=== PATIENT | female | born 1995 | race Caucasian/White ===

== ENCOUNTER 2022-04-12 12:11 | Emergency (ER) | payer OTHER, SELFPAY ==
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
[2022-04-12 12:29] VITALS: BP 123/85; PULSE 73; RESP 18; TEMP 36.6; O2SAT 100; BMI 25.8
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
[2022-04-12 13:25] LABS: MANUAL DIFF FLAG NO
[2022-04-12 13:26] LABS: Basophils Percent Auto 0.2 % (0-2); Eosinophils Percent Auto 0.5 % (0-4); Hematocrit 42.3 % (37.0-47.0); Hemoglobin 14.3 g/dl (12.0-16.0); Imm Gran Abs Auto 0.01 X10*3/uL (0.00-0.03); Imm Gran Pct Auto 0.2 % (0.0-0.4); Lymphocytes Absolute Auto 1.4 X10*3/uL (1.2-4.9); Lymphocytes Percent Auto 24.6 % (20-40); Mean Corpuscular HGB Conc 33.8 g/dl (31.0-35.0); Mean Corpuscular Volume 88.9 fL (80.0-98.0); Monocytes Absolute Auto 0.4 X10*3/uL (0.1-1.2); Monocytes Percent Auto 6.4 % (2-11); Neutrophils Absolute Auto 3.9 x10*3/uL (2.0-8.3); Neutrophils Percent Auto 68.1 % (45-73); Platelet Count 179 X10*3/uL (160-400); Red Blood Count 4.76 X10*6/uL (4.20-5.50); Red Cell Distribution Width 12.1 % (11.0-16.0); White Blood Count 5.7 X10*3/uL (4.8-10.8)
[2022-04-12 13:53] LABS: Alanine Aminotransferase 20 U/L (0-31); Albumin Level 4.2 g/dL (3.5-5.0); Alkaline Phosphatase 62 U/L (39-117); Anion Gap 15 (12-20); Aspartate Amino Transferase 28 U/L (5-31); Bilirubin Direct < 0.2 mg/dL (0.0-0.5); Bilirubin Total 0.6 mg/dL (0.0-1.0); Blood Urea Nitrogen 10 mg/dL (9-16); Calcium 9.2 mg/dL (8.4-10.2); Carbon Dioxide 21 mmol/L (22-29); Chloride 106 mmol/L (96-108); Creatinine Clr Calc Pharmacy 109.7; Estimated Glomerular Filt Rate > 60; Glucose Random 82 mg/dL (60-115); HCG Quantitative < 2 mIU/mL; Sodium 138 mmol/L (135-145)
--- OUTSIDE RECORDS SUMMARY | 2022-04-12 15:00 | XMS_ITS ---
:1995 Author Organization [facility] Address [address] [place] [address] Care Team Providers Name Role Phone Brendan Joya Unavailable Unavailable PROBLEMS Type Condition ICD9-CM Code EDI73-VP Code Onset Condition SNO MED Code Dates Status Problem Other asthma J45.998 Active 5197935 01 Problem Acute upper J06.9 Active 02388089 respiratory infection, unspecified Problem Otalgia, right H92.01 Active 32594 004 ear Problem Cough R05 Active 92109583 ALLERGIES Substance Reaction Event Type Date Status Sulfamethoxazole Unknown Drug Allergy Nov, Active ENCOUNTERS Encounter Location Date Diagnosis Urgent Care Center [address] [place] [id number] Mar, [place] [address] syndrome [T ietze] M94.0 [facility] [address] Nov, [place] [facility] [place] infection, unspe cified [id number] J06.9 [facility] [address] Apr, [facility] [place] [address] [facility] [address] Apr, [facility]05 and Other asthma [place] J45.998 [address] [facility] [address] Apr, Sh ortness of breath R06.02 [place] [address] [facility] - [address] [place] Sep, Ri ght lower quadrant pain [facility], [place] R10.31 ; Dysuria R30.0 and [id number] Other muscle spa sm M62.838 [facility] [address] [place] Jul, Ot algia, right ear H92.01 [place] [address] IMMUNIZATIONS No Known Immunizations SOCIAL HISTORY Never Assessed REASON FOR REFERRAL FUNCTIONAL STATUS PLAN OF CARE VITAL SIGNS Temperature 98.6 degrees Fahrenheit 2021-04-08 Temperature 98.9 degrees Fahrenheit 2018-12-18 Temperature 97.8 degrees Fahrenheit 2016-05-18 Temperature 98.2 degrees Fahrenheit 2016-05-11 Temperature 98.1 degrees Fahrenheit 2016-05-03 Temperature 97.6 degrees Fahrenheit 2015-10-02 Temperature 98.2 degrees Fahrenheit 2015-08-14 Heart Rate 78 /min 2021-04-08 Heart Rate 100 /min 2018-12-18 Heart Rate 76 /min 2016-05-18 Heart Rate 73 /min 2016-05-11 Heart Rate 82 /min 2016-05-03 Heart Rate 65 /min 2015-10-02 Heart Rate 90 /min 2015-08-14 Height 67.5 in 2021-04-08 Height 67.5 in 2018-12-18 Height 67 in 2016-05-18 Height 67.5 in 2016-05-11 Height 66.5 in 2015-08-14 Weight 204 lbs 2021-04-08 Weight 199.0 lbs 2018-12-18 Weight 163.8 lbs 2016-05-18 Weight 166.2 lbs 2016-05-11 Weight 158.8 lbs 2015-08-14 BMI 31.48 kg/m2 2021-04-08 BMI 30.70 kg/m2 2018-12-18 BMI 25.65 kg/m2 2016-05-18 BMI 25.64 kg/m2 2016-05-11 BMI 25.24 kg/m2 2015-08-14 Respiratory Rate 12 /min 2018-12-18 Respiratory Rate 16 /min 2016-05-18 Respiratory Rate 16 /min 2016-05-11 Respiratory Rate 12 /min 2016-05-03 Respiratory Rate 12 /min 2015-10-02 Respiratory Rate 18 /min 2015-08-14 Oximetry 99 % 2021-04-08 Oximetry 99 % 2018-12-18 Oximetry 99 % 2016-05-18 Oximetry 98 % 2016-05-11 Oximetry 99 % 2016-05-03 Oximetry 98 % 2015-10-02 Oximetry 98 % 2015-08-14 Blood pressure systolic 110 mm Hg 2021-04-08 Blood pressure diastolic 70 mm Hg 2021-04-08 MEDICATIONS Medication Instructions Dosage Frequency Start End Duration Statu s Date Date Qvar 40 Inhalation Twice 1 puff 12h 20 Apr, Not-Qasim in MCG/ACT a day 2016 g Medrol (Mg) 4 PO daily as directed 24h Apr, 6 days Not- Takin mg 2016 g Cymbalta Active control Not-Takin g Zofran 4 MG Orally Twice a 2 tablets 12h 24 Nov, 5 days Act shikha day 2018 Tessalon Orally Three 1 capsule as 8h Apr, 7 days Not-T wilmer Perles 100 MG times a day needed 2016 g Xyzal 5 MG Orally Once a 1 tablet in 24h Apr, 14 days Not -Takin day the evening 2016 g PROCEDURES Procedure Date Ordered Result Body Site Nebulizer Treatment May 03, 2016 Albuterol sulfate .083%/ml May 03, 2016 [facility] Dec 18, 2018 RESULTS No Results REASON FOR VISIT asthma, F/U SICK, SICK, F/U , F/U , F/U ON ASTHMA, ASTHMA, UTI F/U, KIDNEY INFECTION/UTI, Ear Pain Insurance Providers [employer] Member Patient Patient Patient Patient Patient Subscriber Subscriber Subscriber Group Insurance Plan Plan Plan Plan ID Relationship Address Phone Name Date of ID Name Date of No Type Insurance Insurance Insurance Coverage to Subscriber Address Phone Name Dates [employer] [phone] [employer] self ANNA [id number] [place] [address]
[2022-04-13 08:42] LABS: HBS Num1 200.98 mIU/mL (0-7.99); HBc Num1 0.09 S/CO (0.00-0.79); HBsAGNum1 0.32 S/CO (0.00-0.99); HIV Num 1 1.85 S/CO (0.00-0.99); Hepatitis B Core Antibody Nonreactive (Nonreactive); Hepatitis B Surface Antigen Negative (Negative); ~HepC Num1 0.07 S/CO (0.00-0.79); ~Hepatitis B Surface Antibody REACTIVE (Nonreactive); ~Hepatitis C Antibody Nonreactive (Nonreactive)
[2022-04-13 10:18] LABS: HIV AB/AG Nonreactive (Nonreactive); HIV Num 2 0.06 S/CO; HIV Num 3 0.06 S/CO
== END 2022-04-12 15:14 | disposition home or self-care (01) ==
PROVIDERS: Physician Assistant Medical; Emergency Provider Emergency Medicine
DX: S06.0X9A Concussion with loss of consciousness of unspecified duration, initial encounter (principal); S00.01XA Abrasion of scalp, initial encounter; R51.9 Headache, unspecified; M54.2 Cervicalgia; Y04.2XXA Assault by strike against or bumped into by another person, initial encounter; Y93.9 Activity, unspecified; Y92.9 Unspecified place or not applicable; Y99.0 Civilian activity done for income or pay; Z79.899 Other long term (current) drug therapy
CPT/HCPCS: 36415; 70450; 72125; 80048; 80076; 84702; 85025; 86704; 86706; 86803; 87340; 87389; 99282; 99284

== ENCOUNTER → 2022-04-17 12:50 | Outpatient (BNVA) | payer OTHER, SELFPAY | PROVIDERS: Visit Provider Physician Assistant Medical | DX: S06.9X0A Unspecified intracranial injury without loss of consciousness, initial encounter (principal); S16.1XXA Strain of muscle, fascia and tendon at neck level, initial encounter; Y04.8XXA Assault by other bodily force, initial encounter | CPT/HCPCS: 99203 ==

== ENCOUNTER → 2022-04-24 12:57 | Outpatient (BNVA) | payer OTHER, SELFPAY | PROVIDERS: Visit Provider Physician Assistant Medical | DX: S06.9X0A Unspecified intracranial injury without loss of consciousness, initial encounter (principal); S16.1XXA Strain of muscle, fascia and tendon at neck level, initial encounter; Y04.8XXA Assault by other bodily force, initial encounter | CPT/HCPCS: 99213 ==

== ENCOUNTER → 2022-05-24 13:40 | Outpatient (BNVA) | payer OTHER, SELFPAY | PROVIDERS: Visit Provider Physician Assistant Medical | DX: S06.0X0D Concussion without loss of consciousness, subsequent encounter (principal); S16.1XXD Strain of muscle, fascia and tendon at neck level, subsequent encounter; S39.012D Strain of muscle, fascia and tendon of lower back, subsequent encounter; Y04.2XXD Assault by strike against or bumped into by another person, subsequent encounter; R42 Dizziness and giddiness; R51.9 Headache, unspecified | CPT/HCPCS: 99213 ==

== ENCOUNTER → 2022-05-31 09:24 | Outpatient (BNVA) | payer OTHER, SELFPAY | PROVIDERS: Visit Provider Physician Assistant Medical | DX: S06.2X0D Diffuse traumatic brain injury without loss of consciousness, subsequent encounter (principal); S16.1XXD Strain of muscle, fascia and tendon at neck level, subsequent encounter; S39.012D Strain of muscle, fascia and tendon of lower back, subsequent encounter; Y04.2XXD Assault by strike against or bumped into by another person, subsequent encounter; R51.9 Headache, unspecified; R42 Dizziness and giddiness | CPT/HCPCS: 99213 ==

== ENCOUNTER → 2022-06-14 08:40 | Outpatient (BNVA) | payer OTHER, SELFPAY | PROVIDERS: Visit Provider Physician Assistant Medical | DX: S06.9X0D Unspecified intracranial injury without loss of consciousness, subsequent encounter (principal); S16.1XXD Strain of muscle, fascia and tendon at neck level, subsequent encounter; S39.012D Strain of muscle, fascia and tendon of lower back, subsequent encounter; Y04.8XXD Assault by other bodily force, subsequent encounter; R51.9 Headache, unspecified; R42 Dizziness and giddiness | CPT/HCPCS: 99213 ==

== ENCOUNTER → 2022-06-15 11:12 | Outpatient (BNVA) | payer OTHER, SELFPAY | PROVIDERS: Visit Provider Physician Assistant Medical | DX: R51.9 Headache, unspecified (principal); R42 Dizziness and giddiness | CPT/HCPCS: 99213 ==

== ENCOUNTER → 2022-06-25 09:19 | Outpatient (BNVA) | payer OTHER, SELFPAY | PROVIDERS: Visit Provider Physician Assistant Medical | DX: S06.9X0D Unspecified intracranial injury without loss of consciousness, subsequent encounter (principal); S16.1XXD Strain of muscle, fascia and tendon at neck level, subsequent encounter; S39.012D Strain of muscle, fascia and tendon of lower back, subsequent encounter; Y04.8XXD Assault by other bodily force, subsequent encounter; R51.9 Headache, unspecified | CPT/HCPCS: 99213 ==

== ENCOUNTER → 2022-06-28 08:35 | Outpatient (BNVA) | payer OTHER, SELFPAY | PROVIDERS: Visit Provider Physician Assistant Medical | DX: S06.9X0D Unspecified intracranial injury without loss of consciousness, subsequent encounter (principal); S16.1XXD Strain of muscle, fascia and tendon at neck level, subsequent encounter; S39.012D Strain of muscle, fascia and tendon of lower back, subsequent encounter; Y04.8XXD Assault by other bodily force, subsequent encounter; R51.9 Headache, unspecified; R42 Dizziness and giddiness | CPT/HCPCS: 99213 ==

== ENCOUNTER → 2022-07-04 15:12 | Outpatient (BNVA) | payer OTHER, SELFPAY | PROVIDERS: Visit Provider Physician Assistant Medical | DX: S06.9X0D Unspecified intracranial injury without loss of consciousness, subsequent encounter (principal); S16.1XXD Strain of muscle, fascia and tendon at neck level, subsequent encounter; Y04.8XXD Assault by other bodily force, subsequent encounter; R51.9 Headache, unspecified; R42 Dizziness and giddiness | CPT/HCPCS: 99213 ==

== ENCOUNTER → 2022-07-12 14:29 | Outpatient (BNVA) | payer OTHER, SELFPAY | PROVIDERS: Visit Provider Physician Assistant Medical | DX: S06.9X0D Unspecified intracranial injury without loss of consciousness, subsequent encounter (principal); S16.1XXD Strain of muscle, fascia and tendon at neck level, subsequent encounter; S39.012D Strain of muscle, fascia and tendon of lower back, subsequent encounter; Y04.8XXD Assault by other bodily force, subsequent encounter; R51.9 Headache, unspecified; R42 Dizziness and giddiness | CPT/HCPCS: 99213 ==

== ENCOUNTER → 2022-07-26 14:54 | Outpatient (BNVA) | payer OTHER, SELFPAY | PROVIDERS: Visit Provider Physician Assistant Medical | DX: S06.9X0D Unspecified intracranial injury without loss of consciousness, subsequent encounter (principal); S16.1XXD Strain of muscle, fascia and tendon at neck level, subsequent encounter; S39.012D Strain of muscle, fascia and tendon of lower back, subsequent encounter; Y04.8XXD Assault by other bodily force, subsequent encounter; R51.9 Headache, unspecified; R42 Dizziness and giddiness | CPT/HCPCS: 99213 ==

== ENCOUNTER 2022-08-09 07:11 | Emergency (ER) | payer OTHER, SELFPAY ==
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
[2022-08-09 07:22] VITALS: BP 132/75; PULSE 78; O2SAT 100
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
[2022-08-09] MEDS: Acetaminophen 325 MG TABLET 975 MG PO (07:47)
[2022-08-09] MEDS: Ibuprofen 800 MG TABLET PO (07:48)
[2022-08-09] MEDS: Cyclobenzaprine HCl 10 MG TABLET PO (07:48)
[2022-08-09 07:50] VITALS: BP 125/75; PULSE 71; RESP 18; TEMP 36.6; O2SAT 99; BMI 25.1
[2022-08-09 07:56] VITALS: BP 125/75; PULSE 65; RESP 16; TEMP 36.8; O2SAT 98
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
[2022-08-09 10:31] VITALS: BP 108/67; PULSE 56; RESP 16; TEMP 36.6; O2SAT 99
== END 2022-08-09 10:46 | disposition home or self-care (01) ==
PROVIDERS: Emergency Provider Emergency Medicine
DX: S39.012A Strain of muscle, fascia and tendon of lower back, initial encounter (principal); S13.4XXA Sprain of ligaments of cervical spine, initial encounter; R51.9 Headache, unspecified; M54.2 Cervicalgia; V43.52XA Car driver injured in collision with other type car in traffic accident, initial encounter; Y93.9 Activity, unspecified; Y92.410 Unspecified street and highway as the place of occurrence of the external cause; Y99.9 Unspecified external cause status
CPT/HCPCS: 72040; 72100; 99283

== ENCOUNTER → 2022-08-16 15:07 | Outpatient (BNVA) | payer OTHER, SELFPAY | PROVIDERS: Visit Provider Physician Assistant Medical | DX: S06.9X0D Unspecified intracranial injury without loss of consciousness, subsequent encounter (principal); S16.1XXD Strain of muscle, fascia and tendon at neck level, subsequent encounter; S39.012D Strain of muscle, fascia and tendon of lower back, subsequent encounter; Y04.8XXD Assault by other bodily force, subsequent encounter; R51.9 Headache, unspecified; R42 Dizziness and giddiness | CPT/HCPCS: 99213 ==

== ENCOUNTER → 2022-09-14 10:11 | Outpatient (BNVA) | payer OTHER, SELFPAY | PROVIDERS: Visit Provider Physician Assistant Medical | DX: S06.9X0D Unspecified intracranial injury without loss of consciousness, subsequent encounter (principal); S16.1XXD Strain of muscle, fascia and tendon at neck level, subsequent encounter; S39.012D Strain of muscle, fascia and tendon of lower back, subsequent encounter; Y04.8XXD Assault by other bodily force, subsequent encounter; R51.9 Headache, unspecified; R55 Syncope and collapse | CPT/HCPCS: 99213 ==

== ENCOUNTER 2022-10-15 10:00 | Outpatient (RCR) | payer OTHER, SELFPAY ==
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
--- NOTE | 2023-01-15 12:47 | MHC.PT.DC ---
[facility] [place] Office [place] Office [place] Office [address] Betsey Lebron [address] [phone] F: [phone] F: [phone] F: [phone] F: [phone] Physical Therapy Discharge Report Diagnosis: TBI headache/cervical strain, lumbar strain (MD Dx) cervicogenic headaches post concussive (PT Dx) Date of Surgery: Date of Evaluation: 07/04/22 Date of Discharge: 01/15/23 Treatments to Date: 11 Cancellations to Date: No Shows to Date: Discharge Status: Improved Function Independent with HEP Discharge Summary: Carolyn received PT treament for neck and LBP as well as treatment for dizziness and vestibular dysfunction after concussion. Her last seessment in her PT note 10/15/22, She has progressed well and reports overall decreased dizziness. She has been able to progress VOR activities but conts to have difficulty with memory and reading and recommend OT consult. spoke with Lorri ORTIZ who is in agreement and will give script. Patient is discharged from PT at this time. Electronically signed by: Jo-Ann Ronquillo, PT, DPT Please sign and return to therapist. Thank you for your referral.
== END 2023-01-15 12:48 | disposition home or self-care (01) ==
LOC: HO.PT 10:00
PROVIDERS: Visit Provider Physician Assistant Medical
DX: S06.9XAD Unspecified intracranial injury with loss of consciousness status unknown, subsequent encounter (principal); R51.9 Headache, unspecified; S16.1XXD Strain of muscle, fascia and tendon at neck level, subsequent encounter; S39.012D Strain of muscle, fascia and tendon of lower back, subsequent encounter
CPT/HCPCS: 97110; 97112; 97140; 97161; 97530

== ENCOUNTER → 2022-10-15 10:51 | Outpatient (BNVA) | payer OTHER, SELFPAY | PROVIDERS: Visit Provider Physician Assistant Medical | DX: S06.9X0D Unspecified intracranial injury without loss of consciousness, subsequent encounter (principal); S16.1XXD Strain of muscle, fascia and tendon at neck level, subsequent encounter; Y04.8XXD Assault by other bodily force, subsequent encounter; R42 Dizziness and giddiness | CPT/HCPCS: 99213 ==

== ENCOUNTER 2022-10-22 13:26 | Outpatient (AMB) | payer OTHER, SELFPAY ==
[2022-10-22 13:35] VITALS: BP 118/72; PULSE 80; O2SAT 98; BMI 26.3
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
== END 2022-10-22 14:56 | disposition home or self-care (01) ==
PROVIDERS: Visit Provider Nurse Practitioner Family
DX: F43.10 Post-traumatic stress disorder, unspecified (principal); S06.9X1S Unspecified intracranial injury with loss of consciousness of 30 minutes or less, sequela; R29.6 Repeated falls; F07.81 Postconcussional syndrome; G44.309 Post-traumatic headache, unspecified, not intractable
CPT/HCPCS: 99204

== ENCOUNTER → 2022-10-22 13:26 | Outpatient (BNVA) | payer OTHER, SELFPAY | PROVIDERS: Visit Provider Nurse Practitioner Family | DX: S06.9XAA Unspecified intracranial injury with loss of consciousness status unknown, initial encounter (principal); Y04.2XXA Assault by strike against or bumped into by another person, initial encounter; Y93.F9 Activity, other caregiving; Y92.538 Other ambulatory health services establishments as the place of occurrence of the external cause; Y99.0 Civilian activity done for income or pay; F07.81 Postconcussional syndrome; F43.10 Post-traumatic stress disorder, unspecified; G44.309 Post-traumatic headache, unspecified, not intractable; R42 Dizziness and giddiness | CPT/HCPCS: 99202 ==

== ENCOUNTER 2022-11-06 10:03 | Outpatient (REF) | payer OTHER, SELFPAY ==
--- NOTE | ~2022-11-06 | MR_ITS ---
EXAMINATION: MR BRAIN WITHOUT CONTRAST CLINICAL INFORMATION: History of traumatic brain injury. Dizziness and persistent headaches. COMPARISON: Head CT dated 04/12/2022. TECHNIQUE: Multiplanar, multisequence imaging of the brain was performed without contrast. FINDINGS: No diffusion abnormalities are identified to suggest an acute or subacute infarct. The ventricles are normal in size. No mass effect or midline shift is seen. No brain parenchymal signal abnormality is noted. No extra-axial fluid collections are seen. The brainstem and cerebellum are normal. The gradient refocused acquisition demonstrates no pathologic magnetic susceptibility artifact to indicate underlying acute or chronic blood products. The craniovertebral junction, marrow signal, and midline structures are normal. The major intracranial flow voids at the level of the pa[place] of [place] are preserved. The dural venous sinus flow voids are maintained. The mastoid air cells and paranasal sinuses are well aerated. MR/MR head/brain wo con IMPRESSION: Normal MRI of the brain. No acute process.
== END 2022-11-06 10:04 | disposition home or self-care (01) ==
LOC: HO.MRI 10:03
PROVIDERS: Visit Provider Internal Medicine
DX: S06.9XAD Unspecified intracranial injury with loss of consciousness status unknown, subsequent encounter (principal); R51.9 Headache, unspecified; R42 Dizziness and giddiness
CPT/HCPCS: 70551

== ENCOUNTER 2022-12-06 09:30 | Outpatient (RCR) | payer OTHER, SELFPAY ==
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
--- NOTE | 2022-12-06 10:16 | MHC.OT.DC ---
[address] [phone] F: [phone] Occupational Therapy Discharge Note Patient Name: Carolyn Viveros Provider: Lorri Champion Diagnosis: Traumatic brain injury Headaches Dizziness Date of Evaluation: 10/24/22 Date of Discharge: 12/06/22 Treatments to Date: 9 Discharge Status: Improved Function Independent with HEP Discharge Summary: Carolyn reports sustaining a fall last as she was descending the stairs following her physical therapy appointment. She reports when she got to the bottom of the stairs, she felt dizzy and passed out. She woke up and realized she hit her head. No medical intervention was obtained although she did notify the PT office. Pt denies new or worsening concussion symptoms since that fall except for pain in her right shoulder and the back of her head. We had a planned discharge this visit. She is still in agreement with plan. At this time, Carolyn has met 4/5 LTG's set on admission and is IND with home cognitive based programs to continue working on improving memory/attention and processing speed. She is still awaiting trauma based or talk therapy, which is recommended for PTSD symptoms. Pts primary concerns remain if she will always struggle with word finding, decreased attention and emotional outbursts. We discussed this at length and reviewed the healing progress. Recommended 'Concussion Rescue' book for continued education and healing tips, although I did provide her with typed resources as well. Pt is discharged from skilled OT and has been instructed to call with any questions / concerns. Electronically Signed By: Brittany Johnson MS OTR/L Reviewed/agree with student documentation: Therapist: Please Sign and return to therapist, thank you for your referral.
== END 2022-12-06 10:37 | disposition home or self-care (01) ==
LOC: HO.OT 09:30
PROVIDERS: PCP Nurse Practitioner Family; Visit Provider Physician Assistant Medical
DX: S06.9XAD Unspecified intracranial injury with loss of consciousness status unknown, subsequent encounter (principal); R51.9 Headache, unspecified; R42 Dizziness and giddiness
CPT/HCPCS: 97110; 97165; 97530

== ENCOUNTER 2022-12-11 10:57 | Outpatient (AMB) | payer OTHER, SELFPAY ==
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
--- OUTSIDE RECORDS SUMMARY | 2022-12-11 11:06 | XMS_ITS | Patient Health Record ---
Author Name Unknown Organization [facility], Address [address] [place] [address] Care Team Providers Care Assembler Fluorescent Lights Name Role Phone Eddie Skinner Unavailable [phone] Brendan Joya Unavailable [phone] ALLERGIES Allergen (clinical drug ingredient) Drug/Non Drug Allergy documented on EMR Reaction Allergy Type Onset Date Status Sulfamethoxazole Unknown Drug Allergy Active REASON FOR REFERRAL No Information MEDICATIONS Medication SIG (Take, Route, Frequency, Duration) Notes Start Date End Date Status Cymbalta *please review f or potential update for e-prescription and drug interaction check* Active Tessalon Perles 100 MG 1 capsule as needed Orally Three times a day for 7 days 05/18/2016 Not-Taking Qvar 40 MCG/ACT 1 puff Inhalation Twice a day *please review for potential update for e-prescription and drug interaction check* 05/14/2016 Not-Taking Medrol (Mg) 4 mg as directed PO daily for 6 days *please review for potential update for e-prescription and drug interaction check* 05/03/2016 Not-Taking Xyzal 5 MG 1 tablet in the evening Orally Once a day for 14 days *please review for potential update for e-prescription and drug interaction check* 05/03/2016 Not-Taking control *please review f or potential update for e-prescription and drug interaction check* Not-Taking Zofran 4 MG 2 tablets Orally Twice a day for 5 days 12/18/2018 Active SOCIAL HISTORY Sex Assigned At : Social History Observation Description Sex Assigned At Unknown PROBLEMS Problem Type ICD Code Onset Dates Problem Status W/U Status Risk SNOMED Code Notes Problem Otalgia, right ear (H92.01) Active confirmed Otalgia (40732734) Problem Acute upper respiratory infection, unspecified (J06.9) Active confirmed Acute upper respiratory infection (79349373) Problem Other asthma (J45.998) Active confirmed Asthma (969130193) Problem Cough (R05) Active confirmed Cough (69634259) PLAN OF TREATMENT No Information Insurance Providers Payer Name Payer Address Payer Phone Subscriber Number Group Number Insured Name Patient Relationship to Insured Coverage Start Date Coverage End Date [address] [place] [address] [phone] [id number] ANNA FABIAN Self - patient is the insured MEDICAL (GENERAL) HISTORY Medical History History ICD Code ASTHMA DEPRESSION
== END 2022-12-11 13:10 | disposition home or self-care (01) ==
LOC: HO.HSMS 10:57
PROVIDERS: PCP Nurse Practitioner Family; Visit Provider Nurse Practitioner Family
DX: F43.10 Post-traumatic stress disorder, unspecified (principal); S06.9XAS Unspecified intracranial injury with loss of consciousness status unknown, sequela; F07.81 Postconcussional syndrome; G44.309 Post-traumatic headache, unspecified, not intractable; R29.6 Repeated falls
CPT/HCPCS: 99214

== ENCOUNTER → 2022-12-11 10:57 | Outpatient (BNVA) | payer OTHER, SELFPAY | PROVIDERS: PCP Nurse Practitioner Family; Visit Provider Nurse Practitioner Family ==

== ENCOUNTER 2023-02-14 13:00 | Outpatient (AMB) | payer OTHER, SELFPAY ==
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
--- OUTSIDE RECORDS SUMMARY | 2023-02-14 13:02 | XMS_ITS | Patient Health Record ---
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 Name Role Phone Eddie Skinner Unavailable [phone] Brendan Joya Unavailable [phone] ALLERGIES Allergen (clinical drug ingredient) Drug/Non Drug [...] Otalgia, right ear (H92.01) Active confirmed Otalgia (64480563) Problem Acute upper respiratory infection, unspecified (J06.9) Active confirmed Acute upper respiratory infection (54886337) Problem Other asthma (J45.998) Active confirmed Asthma (273969811) Problem Cough (R05) Active confirmed Cough (28125204) PLAN OF TREATMENT No Information Insurance Providers Payer Name Payer Address Payer Phone Subscriber Number Group Number Insured Name Patient Relationship to Insured Coverage Start Date Coverage End Date [address] [place] [address] [phone] [id number] ANNA FABIAN Self - patient is the insured MEDICAL (GENERAL) HISTORY Medical History History ICD Code ASTHMA DEPRESSION
== END 2023-02-15 10:11 | disposition home or self-care (01) ==
LOC: HO.HSMS 13:00
PROVIDERS: PCP Nurse Practitioner Family; Visit Provider Nurse Practitioner Family
DX: S06.300S Unspecified focal traumatic brain injury without loss of consciousness, sequela (principal); F07.81 Postconcussional syndrome; G44.309 Post-traumatic headache, unspecified, not intractable; R55 Syncope and collapse; Z04.2 Encounter for examination and observation following work accident
CPT/HCPCS: 99214

== ENCOUNTER → 2023-02-14 13:00 | Outpatient (BNVA) | payer OTHER, SELFPAY | PROVIDERS: PCP Nurse Practitioner Family; Visit Provider Nurse Practitioner Family ==

== ENCOUNTER 2023-03-27 10:55 | Outpatient (AMB) | payer OTHER, SELFPAY ==
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
[2023-03-27 11:04] VITALS: BP 115/72; PULSE 67; O2SAT 99; BMI 24.4
== END 2023-03-27 12:10 | disposition home or self-care (01) ==
PROVIDERS: PCP Nurse Practitioner Family; Visit Provider Nurse Practitioner Family
DX: F43.10 Post-traumatic stress disorder, unspecified (principal); F07.81 Postconcussional syndrome; G44.309 Post-traumatic headache, unspecified, not intractable; R42 Dizziness and giddiness; R29.6 Repeated falls; R55 Syncope and collapse
CPT/HCPCS: 99214

== ENCOUNTER → 2023-03-27 10:55 | Outpatient (BNVA) | payer OTHER, SELFPAY | PROVIDERS: PCP Nurse Practitioner Family; Visit Provider Nurse Practitioner Family | DX: F07.81 Postconcussional syndrome (principal); S06.9XAA Unspecified intracranial injury with loss of consciousness status unknown, initial encounter; F43.10 Post-traumatic stress disorder, unspecified; G44.309 Post-traumatic headache, unspecified, not intractable; R42 Dizziness and giddiness; R55 Syncope and collapse; Z91.81 History of falling; Z79.899 Other long term (current) drug therapy | CPT/HCPCS: 99212 ==

== ENCOUNTER 2023-06-28 10:52 | Outpatient (AMB) | payer SELFPAY ==
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
--- OUTSIDE RECORDS SUMMARY | 2023-06-28 10:54 | XMS_ITS | Patient Health Record ---
Author Organization [facility], Address [address] [place] [address] Care Team Providers Care Currency Counter Name Role Phone Eddie Skinner Unavailable [phone] Brendan Joya Unavailable [phone] Allergies Allergen (clinical drug ingredient) Drug/Non Drug Allergy documented on EMR Reaction Allergy Type Onset Date Status Sulfamethoxazole Unknown Drug Allergy Active Reason For Referral No Information Medications Medication SIG (Take, Route, Frequency, Duration) Notes [...] a day for 5 days 12/18/2018 Active Problems Problem Type SNOMED Code ICD Code Onset Dates Problem Status W/U Status Risk Notes Problem Otalgia (63760031) Otalgia, right ear (H92.01) Active confirmed Problem Acute upper respiratory infection (67211577) Acute upper respiratory infection, unspecified (J06.9) Active confirmed Problem Asthma (947503998) Other asthma (J45.998) Active confirmed Problem Cough (80186665) Cough (R05) Active confirmed Plan Of Treatment No Information Insurance Providers Payer Name Payer Address Payer Phone Subscriber Number Group Number Insured Name Patient Relationship to Insured Coverage Start Date Coverage End Date [place] [address] [place] [address] [id number] ANNA FABIAN Self - patient is the insured Medical (General) History Medical History History ICD Code ASTHMA DEPRESSION
== END 2023-06-28 11:30 | disposition home or self-care (01) ==
LOC: HO.HSMS 10:52
PROVIDERS: PCP Nurse Practitioner Family; Visit Provider Nurse Practitioner Family
DX: F43.10 Post-traumatic stress disorder, unspecified (principal); F07.81 Postconcussional syndrome; G44.309 Post-traumatic headache, unspecified, not intractable; R55 Syncope and collapse
CPT/HCPCS: 99214

== ENCOUNTER → 2023-06-28 10:52 | Outpatient (BNVA) | payer OTHER, SELFPAY | PROVIDERS: PCP Nurse Practitioner Family; Visit Provider Nurse Practitioner Family | DX: F07.81 Postconcussional syndrome (principal); F43.10 Post-traumatic stress disorder, unspecified; G44.309 Post-traumatic headache, unspecified, not intractable; R42 Dizziness and giddiness; R55 Syncope and collapse; Z87.820 Personal history of traumatic brain injury; Z91.81 History of falling; Z79.899 Other long term (current) drug therapy | CPT/HCPCS: 99212 ==

== ENCOUNTER 2023-10-02 10:09 | Outpatient (AMB) | payer SELFPAY ==
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
[2023-10-02 10:11] VITALS: BP 130/82; PULSE 90; O2SAT 98; BMI 24.8
== END 2023-10-02 11:13 | disposition home or self-care (01) ==
PROVIDERS: PCP Nurse Practitioner Family; Visit Provider Nurse Practitioner Family
DX: F43.10 Post-traumatic stress disorder, unspecified (principal); S06.9XAA Unspecified intracranial injury with loss of consciousness status unknown, initial encounter; F07.81 Postconcussional syndrome; G44.309 Post-traumatic headache, unspecified, not intractable; R42 Dizziness and giddiness
CPT/HCPCS: 99214

== ENCOUNTER → 2023-10-02 10:09 | Outpatient (BNVA) | payer SELFPAY | PROVIDERS: PCP Nurse Practitioner Family; Visit Provider Nurse Practitioner Family | DX: F43.10 Post-traumatic stress disorder, unspecified (principal); S06.9XAD Unspecified intracranial injury with loss of consciousness status unknown, subsequent encounter; F07.81 Postconcussional syndrome; G44.309 Post-traumatic headache, unspecified, not intractable; R42 Dizziness and giddiness; Z79.899 Other long term (current) drug therapy | CPT/HCPCS: 99212 ==

== ENCOUNTER 2024-01-20 14:09 | Outpatient (AMB) | payer OTHER, SELFPAY ==
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
[2024-01-20 14:25] VITALS: BP 118/72; PULSE 94; O2SAT 98; BMI 24.4
== END 2024-01-20 15:47 | disposition home or self-care (01) ==
PROVIDERS: PCP Nurse Practitioner Family; Visit Provider Nurse Practitioner Family
DX: F43.10 Post-traumatic stress disorder, unspecified (principal); F07.81 Postconcussional syndrome; G44.309 Post-traumatic headache, unspecified, not intractable; R42 Dizziness and giddiness; G43.009 Migraine without aura, not intractable, without status migrainosus
CPT/HCPCS: 99214

== ENCOUNTER → 2024-01-20 14:09 | Outpatient (BNVA) | payer OTHER, SELFPAY | PROVIDERS: PCP Nurse Practitioner Family; Visit Provider Nurse Practitioner Family ==

== ENCOUNTER 2024-10-30 11:19 | Outpatient (AMB) | payer OTHER, SELFPAY ==
--- OUTSIDE RECORDS SUMMARY | 2024-01-24 04:30 | XMS_ITS ---
Author Organization [facility] Address [address] [place] [address] Care Team Providers Care Certified Recreational Therapist Name Role Phone Evelyn Cabrera Primary Care Provider [phone] Jorje Gonzalez Unavailable [phone] Evelyn Cabrera Unavailable Unavailable Ariana Escobedo Unavailable [phone] Encounters Encounter Location Date Provider Diagnosis [facility] [address] [place] [address] 01/24/2024 Ariana Escobedo Plan Of Treatment No Information Progress Notes * HAZEL DianaLibertyOB:1995 (29 yo F)Acc No.[id number]:01/24/2024 Patient: Alma DUMONTn Provider: Shana Escobedo APRN :1995 A ge:28 Y S ex:Female Date:01/24/2024 Address:[address] [place], [place] [id number] Pcp:Evelyn Cabrera Subjective: * Chief Complaints: * * Medical History: Objective: * Vitals: Assessment: Plan: * Treatment: Care Plan: * Problems: * Images: * Electronic signature of Mohamud Escobedo APRN on 10/30/2024 at 12:21 PM EDT Sign off status: Pending * Provider: Shana Escobedo APRN Date: 03/25/2023 Generated for Chaz de la cruz/Jody/eTransmitting on: 0 10/30/2024 12:21 PM EDT
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
[2024-10-30 11:32] VITALS: BP 120/74; PULSE 78; O2SAT 99; BMI 27.3
--- OUTSIDE RECORDS SUMMARY | 2024-10-30 12:22 | XMS_ITS | Clinical Summary ---
Author Organization [facility] Address [address] [place] [address] Care Team Providers Care Shank Tapper Name Role Phone Evelyn Cabrera NADINE Primary Care Provider [phone] Allergies Active Allergy Reactions Criticality Noted Date Comments Sulfa Antibiotics Swelling Medium 06/04/2018 Medications DULoxetine (CYMBALTA) 30 MG capsule Take by mouth daily. 0 9 Active ergocalciferol (VITAMIN D2,DRISDOL) 09282 units Cap TAKE 1 CAPSULE (50,000 UNITS) BY MOUTH WEEKLY 0 9 Active rifAXimin (XIFAXAN) 550 MG tabletIndications: Diarrhea, unspecified type Take 1 tablet (550 mg total) by mouth every 12 (twelve) hours around the clock. 42 tablet 1 9 Active butalbital-acetami nophen-caffeine (FioriCET, ESGIC) 50-325-40 mg tablet Take 1-2 tablets by mouth every 4 (four) hours as needed for pain. Max: 6 capsules/table ts in 24 hours 10 tablet 0 Active albuterol (ProAir HFA) 108 (90 Base) MCG/ACT inhaler ProAir HFA 108 (90 Base) MCG/ACT Inhalation Aerosol Solution RxNorm: 966902 Albuterol Sulfate 108 (90 Base) MCG/ACT 2019-12-24 Not Indicated 1 puff inhaled orally every 4 hours as needed 0 Active amitriptyline (ELAVIL) 10 MG tablet TAKE 1-2 TABLETS ORALLY BEDTIME FOR 30 DAYS 3 Active DULoxetine (CYMBALTA) 60 MG capsule 1 CAP(S) ORALLY ONCE A DAY IN THE MORNING 90 DAYS 3 Active ondansetron (ZOFRAN-ODT) [address] 1 TABLET ON TONGUE AND ALLOW TO DISSOLVE EVERY 8 HRS NEEDED FOR NAUSEA AND VOMITING 3 Active SUMAtriptan (IMITREX) 100 MG tablet PLEASE SEE ATTACHED FOR DETAILED DIRECTIONS 3 Active Active Problems Problem Noted Date Diagnosed Date Concussion with loss of consciousness of 30 obed daniel or less 12/31/2022 Contusion of left foot 10/31/2021 Left foot pain 10/31/2021 Functional diarrhea 06/04/2018 Immunizations Immunization Administration Dates Next Due Covid-19 MRNA Primary Series Vaccine - Pfizer 12+ Wai-Sucrose 09/21/2021 Family History Medical History Relation Name Comments Crohn's disease Mother Relation Name Status Comments Mother Social History Tobacco Use Types Packs/Day Years Used Date Smoking Tobacco: Never Smokeless Tobacco: Never Alcohol Use Standard Drinks/Week Comments Yes 0 (1 standard drink = 0.6 oz pur e alcohol) socially AUDIT-C Answer Date Recorded Frequency of Alcohol Consumption 2-4 times a sat06/04/2018 Average Number of Drinks Not on file 019 Frequency of Binge Drinking Not on file 05/26 Comments No Sex and Gender Information Value Date Recorded Sex Assigned at Female 10/18/2022 2:23 PM EDT Legal Sex Female 7:45 PM EDT Gender Identity Female 10/18/2022 2:23 PM EDT Sexual Orientation Heterosexual (straight) 10/18 2:23 PM EDT Last Filed Vital Signs Vital Sign Reading Time Taken Comments Blood Pressure 113/77 12/31/2022 3:28 PM EST Pulse 89 12/31/2022 3:28 PM EST Temperature 36.8 C (98.3 F) 10/18/2022 1:40 PM EDT Respiratory Rate 16 10/18/2022 1:40 PM EDT Oxygen Saturation 98% 12/31/2022 3:28 PM EST Inhaled Oxygen Concentration - - Weight 78 kg (172 lb) 12/31/2022 3:28 PM EST Height 177.8 cm (5' 10 ) 12/31/2022 3:28 PM EST Body Mass Index 24.68 12/31/2022 3:28 PM EST Plan of Treatment Upcoming Encounters Date Type Department Care Team (Late st Contact Info) Description 11/20/2024 2:45 PM EDT Office Visit [facility] [address] [place] [address] Poli Ayala MD [address] [place] [phone] Health Maintenance Due Date Last Done Comments Hepatitis C Virus Screening 1996 HIV Screening 02/27/2009 DTaP/Tdap/Td Vaccines (1 - Tdap) 02/27/2015 Hepatitis B Vaccines (1 of 3 - 19+ 3-dose series) 02/27/2015 Pap Smear (Ages 21-65) 02/27/2017 HPV Vaccines (1 - 3-dose SCD M series) 02/27/2023 Influenza Vaccine 09/25/2024 COVID-19 Vaccine ( - 2024-2 6 season) 2024 09/21/2021, 03/22/2020, 03/01/2020 Pneumococcal Vaccine: Pediatric (0-5 Years) and At-Risk Patients (6 to 49 Years) Aged Out No longer eligible b ased on patient's age to complete this topic Insurance [facility] [employer] [facility] [employer] [facility] [employer] Care Teams Shank Tapper Relationship Specialty Start Date End Date Evelyn Cabrera APRN [address] [place] [phone] PCP - General Family Medicine 10/18/22
--- OUTSIDE RECORDS SUMMARY | 2024-10-30 12:22 | XMS_ITS | Encounter Summary ---
Author Organization [facility] Address [address] [place] [address] Care Team Providers Care Manager Packaging Name Role Phone Rosmery Luevano PA-C Primary Care Provider Evelyn Cabrera APRN Primary Care Provider [phone] Encounter Details Date Type Department Care Team (Late st Contact Info) Description 08/16/2022 Scanned Document [facility] Neurology [address] [place] [address] Bakari Mariano, DO [address] [place] [phone] Social History Tobacco Use Types Packs/Day Years [...] Orientation Heterosexual (straight) 10/18 2:23 PM EDT documented as of this encounter Plan of Treatment Upcoming Encounters Date Type Department Care Team (Late st Contact Info) Description 11/20/2024 2:45 PM EDT Office Visit [facility] [address] [place] [address] Poli Ayala MD [address] [place] [address] documented as of this encounter Visit Diagnoses Not on filedocumented in this encounter Care Teams Manager Packaging Relationship Specialty Start Date End Date Rosmery Luevano PA-C [address] [place], [place] [phone] PCP - General Adult Health - JC/ANA/MANAGER CHILD/CHIEF OPERATING OFFICER 05/04/22 10/17/22 Evelyn Cabrera APRN [facility] [place] [address] PCP - General Family Medicine 10/18/22 documented as of this encounter
--- OUTSIDE RECORDS SUMMARY | 2024-10-30 12:22 | XMS_ITS | Encounter Summary ---
Author Organization [facility] Address [address] [place] [address] Care Team Providers Care Vessel Welder Name Role Phone Ryne Lara MD Primary Care Provider [phone] Reason for Visit * Reason Comments Medication Refill Encounter Details Date Type Department Care Team ([facility] st Contact Info) Description 03/21/2020 Refill [facility] [address] [place] [phone] Blaire Hutchinson MD [address] [place] [phone] Medication Refill Social History Tobacco Use Types Packs/Day Years Used Date Smoking Tobacco: Never Smokeless Tobacco: Never Alcohol Use Standard Drinks/Week Comments Yes 0 (1 standard drink = 0.6 oz pur e alcohol) occ Comments No Sex and Gender Information Value Date Recorded Sex Assigned at Not on file Legal Sex Female 8:23 AM EST Gender Identity Not on file Sexual Orientation Not on file documented as of this encounter Plan of Treatment Not on file documented as of this encounter Visit Diagnoses Diagnosis Encounter for initial prescription of contraceptive pills General counseling for prescription of oral contraceptives documented in this encounter Care Teams Vessel Welder Relationship Specialty Start Date End Date Ryne Lara MD [address] [place] [phone] PCP - General Internal Medicine 04/04/15 documented as of this encounter
--- OUTSIDE RECORDS SUMMARY | 2024-10-30 12:22 | XMS_ITS ---
Author Name [facility] Organization Unknown Results Test Name/Text Value Interpretation Date Range Source Bacteria # Ur Auto Moderate Abnormal 03/09/2023 - [facility] RBC #/area UrnS Auto 2.0 /HPF Normal 03/09/2023 0 - 2 [facility] WBC #/area UrnS Auto 48.0 /HPF Above high normal 03/09/2023 0 - 5 [facility] Squamous #/area UrnS Auto 3.0 /HPF Normal 03/09/2023 0 - 5 [facility] Urobilinogen Ur Strip-mCnc <2.0 mg/dL Normal 03/09/2023 - [facility] Nitrite Ur Ql Strip.auto Positive Abnormal 03/09/2023 - [facility] Ketones Ur Strip.auto-mCnc Negative Normal 03/09/2023 - [facility] Glucose Ur Strip.auto-mCnc Negative Normal 03/09/2023 - [facility] Color Ur Auto Yellow Normal 03/09/2023 - [facility] Hgb Ur Ql Strip.auto Trace Abnormal 03/09/2023 - [facility] pH Ur Strip.auto 6.5 Normal 03/09/2023 5.5 - 7.5 [facility] Sp Gr Ur Refract.auto 1.024 Normal 03/09/2023 1.005 - 1.03 [facility] Prot Ur Strip.auto-mCnc Trace Normal 03/09/2023 - [facility] Bilirub Ur Ql Strip.auto Negative Normal 03/09/2023 - [facility] Clarity Ur Refract.auto Cloudy Abnormal 03/09/2023 - [facility] WBC # Ur Strip 4+ Abnormal 03/09/2023 - [facility] History of Medication Use Medication Directions Dispensed Refills Start Date End Date Stat us ondansetron (ZOFRAN-ODT) [address] 1 TABLET ON TONGUE AND ALLOW TO DISSOLVE EVERY 8 HRS NEEDED FOR NAUSEA AND VOMITING 11/22/2022 active albuterol (ProAir HFA) 108 (90 Base) MCG/ACT inhaler ProAir HFA 108 (90 Base) MCG/ACT Inhalation Aerosol Solution RxNorm: [id number] Albuterol Sulfate 108 (90 Base) MCG/ACT 2019-12-24 Not Indicated 1 puff inhaled orally every 4 hours as needed 12/24/2019 active butalbital-acetaminop hen-caffeine (FioriCET, ESGIC) 50-325-40 mg tablet Take 1-2 tablets by mouth every 4 (four) hours as needed for pain. Max: 6 capsules/tablets in 24 hours 08/05/2019 active DULoxetine (CYMBALTA) 30 MG capsule Take by mouth daily. 05/16/2018 active fluconazole 150 mg oral tablet 12/21/2015 completed hyoscyamine sulfate 0.375 mg oral tablet extended release 12 hr 10/02/2015 completed ProAir HFA 90 mcg/actuation inhalation HFA aerosol inhaler 02/03/2015 completed Junel FE 1/20 (28) 1 mg-20 mcg (21)/75 mg (7) oral tablet 01/29/2015 completed metronidazole 0.75 % vaginal gel 10/01/2014 completed Minastrin 24 Fe 1 mg-20 mcg(24) /75 mg (4) oral tablet,chewable completed Allergies Allergen Reaction Severity Comment Documented Date Source Statu s SULFA ANTIBIOTICS SWELLING 06/04/2018 [facility] ac tive BACTRIM ENS_ORTHOCT OTHER MEDICATION(S) ENS_ORTHOCT SULFUR E[facility]_ORTHOCT Problems Problem Status Onset Date Problem Type Date of Resoluti on Source Lumbar Sprain active 2022-09-14 ProblemAct [facility] Acute myofascial strain of lumbar region, subsequent encounter active 2022-10-10 ProblemAct [facility] Concussion with loss of consciousness of 30 minutes or less active 2022-12-31 ProblemAct [facility] Cervical sprain active 2022-09-14 ProblemAct EN S_ORTHOCT Acute bilateral low back pain active 2022-11-21 ProblemAct [facility] Functional diarrhea active 2018-06-04 ProblemAct [facility] Contusion of left foot active 2021-10-31 ProblemAct [facility] Left foot pain active 2021-10-31 ProblemAct [facility] Immunizations Vaccine Date Source Lot Number Status Covid-19 MRNA Primary Series Vaccine - Pfizer 12+ Wai-Sucrose 09/21/2021 [facility] [id number] completed Encounters Encounter Type Encounter Reason Primary Diagnosis Location Date Ambulatory RECHECK: CERVICAL AN D LUMBAR [facility] 04/04/2023 Ambulatory [facility] 04/01/2023 Ambulatory [facility] 03/26/2023 Ambulatory [facility] 03/21/2023 Ambulatory [facility] 03/14/2023 Ambulatory [facility] 03/11/2023 Ambulatory [facility] 03/08/2023 Ambulatory [facility] 03/07/2023 Ambulatory [facility] 02/26/2023 Ambulatory [facility] 02/19/2023 Ambulatory [facility] 02/15/2023 Ambulatory [facility] 02/11/2023 Ambulatory [facility] 02/06/2023 Ambulatory [facility] 01/30/2023 Ambulatory [facility] 01/23/2023 Ambulatory [facility] 01/21/2023 Ambulatory [facility] 01/15/2023 Ambulatory [facility] 01/10/2023 Ambulatory [facility] 01/07/2023 Ambulatory [facility] 01/03/2023 Ambulatory Concussion with loss of consciousness of 30 minutes or less, initial encounter Concussion with loss of consciousness of 30 minutes or less, initial encounter [facility] 12/31/2022 Ambulatory [facility] 12/25/2022 Ambulatory [facility] 12/19/2022 Ambulatory [facility] 12/18/2022 Ambulatory C spine beiner 172 hnp [facility] 12/15/2022 Ambulatory L spine beiner 172 hnp [facility] 12/15/2022 Ambulatory [facility] 12/10/2022 Ambulatory [facility] 12/05/2022 Ambulatory [facility] 12/03/2022 Ambulatory cervical/lumbar [facility] 11/29/2022 Ambulatory [facility] 11/28/2022 Ambulatory [facility] 11/21/2022 Ambulatory [facility] 11/19/2022 Ambulatory [facility] 11/15/2022 Ambulatory [facility] 11/07/2022 Ambulatory [facility] 11/05/2022 Ambulatory [facility] 10/31/2022 Ambulatory [facility] 10/25/2022 Ambulatory cervical/lumbar [facility] 10/25/2022 Ambulatory [facility] 10/23/2022 Emergency Unspecified injury o f head, initial encounter Unspecified injury of head, initial encounter [facility] 10/18/2022 Ambulatory [facility] 10/18/2022 Ambulatory [facility] 10/10/2022 Ambulatory [facility] 10/04/2022 Ambulatory [facility] 10/01/2022 Ambulatory [facility] 09/26/2022 Ambulatory [facility] 09/24/2022 Ambulatory [facility] 09/19/2022 Ambulatory [facility] 09/17/2022 Ambulatory [facility] 09/13/2022 Ambulatory [facility] 09/12/2022 Ambulatory [facility] 09/06/2022 Ambulatory [facility] 09/04/2022 Ambulatory [facility] 09/01/2022 Ambulatory [facility] 08/29/2022 Ambulatory [facility] 08/14/2022 Ambulatory Work Related Injury [facility] 11/06/2021 Ambulatory Contusion of lef t foot, subsequent encounter [facility] 11/06/2021 Ambulatory Contusion of lef t foot, subsequent encounter [facility] 11/03/2021 Ambulatory Contusion of lef t foot, subsequent encounter [facility] 10/31/2021 Ambulatory Unspecified inju ry of left foot, subsequent encounter [facility] 10/27/2021 Ambulatory [facility] 10/24/2021 Ambulatory Unspecified inju ry of left foot, initial encounter [facility] 10/24/2021 Ambulatory Encounter for immunization [facility] 09/21/2021 Emergency Laceration witho ut foreign body of unspecified wrist, initial encounter [facility] 08/26/2021 Ambulatory Low back pain, unspecified [facility] 08/11/2021 Care Team Organization Name Specialty Phone Email Start Date End Da te [facility] AAKASH CABRERA [facility] 12/31/2022 [facility] ZIGGY LUEVANO Primary Care 12/31/2022 12/31/2022 [facility] 12/27/2022 024 [facility] Ziggy Luevano Primary [facility] 10/18/202203/29 [facility] Aakash Cabrera Primary [facility] 10/18/2022 [facility], AAKASH BYERS Primary Care 09/13/202203/31 [facility], Mikey Haynes Primary Care 08/14/2022 03/31/2024 [facility] 11[facility]11[facility]16/2021 [facility] Mikey Sadler Primary Care 11/06/2021 04/21/2024 [facility] MIKEY SADLER Primary Care 08/26/2021 11/06/2021
--- OUTSIDE RECORDS SUMMARY | 2024-10-30 12:22 | XMS_ITS | Encounter Summary ---
Author Organization [facility] Address [address] [place] [address] Care Team Providers Care Shiftman Name Role Phone Ryne Lara MD Primary Care Provider [phone] Encounter Details Date Type Department Care Team (Late st Contact Info) Description 02/05/2023 Abstract [facility] [employer] [facility] [address] [place] [address], [address] [place] [address] Funmilayo Frank MD [address] [phone] Social History Tobacco Use Types Packs/Day Years [...] on filedocumented in this encounter Care Teams Shiftman Relationship Specialty Start Date End Date Ryne Lara MD [address] [place] [phone] PCP - General Internal Medicine 04/04/15 documented as of this encounter
--- OUTSIDE RECORDS SUMMARY | 2024-10-30 12:22 | XMS_ITS | Patient Health Record ---
Author Organization [facility] Address [address] [place] [address] Care Team Providers Care Tire Assembler Name Role Phone Eddie Skinner Unavailable [phone] Corwin Polanco Unavailable [phone] ALLERGIES Allergen (clinical drug ingredient) Drug/Non Drug Allergy documented on EMR Reaction Allergy Type Onset Date Status Sulfamethoxazole Unknown Drug Allergy Active REASON FOR REFERRAL No Information MEDICATIONS Medication SIG (Take, Route, Frequency, Duration) Notes Start Date End Date Status CONTROL Not-Ta shawn Cymbalta Active Zofran 4 MG 2 tablets Orally Twi ce a day for 5 days 12/18/2018 Active Qvar 40 MCG/ACT 1 puff Inhalation Tw ice a day 05/14/2016 Not-Taking Tessalon Perles 100 MG 1 capsule as need ed Orally Three times a day for 7 days 05/18/2016 Not-Taking Xyzal 5 MG 1 tablet in the even ing Orally Once a day for 14 days 05/03/2016 Not-Taking Medrol (Mg) 4 mg as directed PO daily for 6 days 05/03/2016 Not-Taking PROBLEMS Problem Type ICD Code Onset Dates Problem Status W/U Status Risk SNOMED Code Notes Problem Otalgia, right ear (H92.01) Active confirmed Otalgia of right ear (finding) (9528040178) Problem Acute upper respiratory infection, unspecified (J06.9) Active confirmed Acute upper respiratory infection (83837102) Problem Other asthma (J45.998) Active confirmed Asthma (595327426) Problem Cough (R05) Active confirmed Cough (55003111) PLAN OF TREATMENT No Information Insurance Providers Payer Name Payer Address Payer Phone Subscriber Number Group Number Insured Name Patient Relationship to Insured Coverage Start Date Coverage End Date Self [facility] [address] VAISHNAVI MILLARD [id number] ANNA FABIAN Self - patient is the insured MEDICAL (GENERAL) HISTORY Medical History History ICD Code ASTHMA DEPRESSION
--- OUTSIDE RECORDS SUMMARY | 2024-10-30 12:22 | XMS_ITS | Patient Health Record ---
Author Organization [facility] Address [address] [place] [address] Care Team Providers Care Pediatric Physical Therapy Assistant Name Role Phone Evelyn Cabrera Primary Care Provider Jroje Gonzalez Unavailable [phone] Evelyn Cabrera Unavailable Unavailable Ariana Escobedo Unavailable [phone] Allergies Allergen (clinical drug ingredient) Drug/Non Drug Allergy documented on EMR Reaction Allergy Type Onset Date Status sulfamethizole Unknown Drug Allergy Ac tive aripiprazole Abilify tremor Drug Allergy Acti ve Reason For Referral No Information Medications Medication SIG (Take, Route, Fr equency, Duration) Notes Start Date End Date Status ondansetron 4 mg 1 tab(s) orally 3 ti mes a day; Duration: 7 days PRN 02/23/2022 Not-Taking SUMAtriptan 100 mg 1 tab(s) orally once PRN Not-Taking Cymbalta 60 mg 1 cap(s) orally once a day in the morning; Duration: 90 days Active Social History Tobacco Use: Social History Observation Description Date Details (start date - stop date) Former Smoker NA - NA smoking Question Answer Notes Status: former smoker Alcohol Screen Question Answer Notes Did you have a drink contain ing alcohol in the past year? Yes How often did you have six o r more drinks on one occasion in the past year? Never (0 points) How many drinks did you have on a typical day when you were drinking in the past year? 1 or 2 (0 points) How often did you have a dri nk containing alcohol in the past year? 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 confirmed Problem Chronic pain (05801393) Other chronic pain (G89.29) Active confirmed Problem Peripheral vascular disease (598577537) Peripheral vascular disease, unspecified (I73.9) Active confirmed Problem Irritable bowel syndrome with diarrhea (851842530) Irritable bowel syndrome with diarrhea (K58.0) Active confirmed Problem Mixed anxiety and depressive disorder (573455320) Depression with anxiety (F41.8) Active confirmed Problem Bipolar disorder (32592472) Bipolar disorder (F31.9) Active confirmed Problem Anxiety (00729119) Anxiety (F41.9) Active confirmed Problem Social anxiety disorder (86139667) Social anxiety disorder (F40.10) Active confirmed Problem Generalized anxiety disorder (27099155) ERICA (generalized anxiety disorder) (F41.1) Active confirmed Problem Vitamin D deficiency (41797390) Vitamin D insufficiency (E55.9) Active confirmed Problem Delusional disorder (52693801) Paranoia (psychosis) (F22) Active confirmed Problem Depressive disorder (disorder) (00298459) Depression, unspecified depression type (F32.A) Active confirmed Encounters Encounter Location Date Provider Diagnosis [facility] [address] [place] [address] 06/18/2024 Evelyn LUTZ [facility] [address] [place] [address] 04/09/2024 Evelyn Cabrera Plan Of Treatment Pending Test Test Name Order Date EKG 04/26/2021 *Physical Exam Panel: CBC, comprehensive , tsh, esr, lipids, ua 04/26/2021 COMPREHENSIVE METABOLIC PANEL W/EGFR *CHLAMYDIA/N. GONORRHOEAE RNA, TMA (URIN E) 01/21/2023 *VITAMIN D, 25-HYDROXY, LC/MS/MS* 2021 *CBC (INCLUDES DIFF/PLT) 01/21/2023 *LIPID PANEL 01/21/2023 *TSH, 3RD GENERATION 01/21/2023 *VITAMIN B12 04/26/2021 *URINALYSIS, COMPLETE W/REFLEX TO CULTUR E 01/21/2023 *HEMOGLOBIN A1C 01/21/2023 Xray Lumbar Spine 08/11/2021 *urinalysis complete (microscopic,macros copic) 11/06/2022 URINE CULTURE 11/06/2022 *COMPREHENSIVE METABOLIC PANEL 3 Insurance Providers Payer Name Payer Address Payer Phone Subscriber Number Group Number Insured Name Patient Relationship to Insured Coverage Start Date Coverage End Date [employer] [address] [place] [address] [id number] Carolyn Carrasquillo Self - patient is the insured 3 3 Medical (General) History Medical History History ICD Code Anxiety Depression ADHD PTSD IBS COVID 19 vaccines- completed initial pfizer vaccine series + 1 pfizer booster [employer]- [facility] ([place]) seen 10/2021 TBI - 03/2022 Surgical History Surgery Date(Month/Year) toe surgery 11/2019 Hospitalization History Reason Date(Month/Year) TBI - [facility] 03/2022
--- OUTSIDE RECORDS SUMMARY | 2024-10-30 12:22 | XMS_ITS | Clinical Summary ---
Author Organization [address] Address [address] [place] [phone] Care Team Providers Care Director Of Litigation Name Role Phone Ryne Lara MD Primary Care Provider + Allergies Active Allergy Reactions Criticality Noted Date Comments Sulfa (Sulfonamide Antibiotics) Lip Swelling Medications albuterol (PROVENTIL HFA) 90 mcg/actuation HFA inhaler Inhale 2 puffs into the lungs every 6 (six) hours as needed for Wheezing.. 1 Inhaler 7 Active DULoxetine (CYMBALTA) 30 MG capsule Take 2 capsules (60 mg total) by mouth every morning. 9 Active cranberry 500 mg CapIndications: Recurrent UTI (urinary tract infection) Take 1 tablet by mouth daily. 4 Active SUMAtriptan (IMITREX) 100 mg tablet PLEASE SEE ATTACHED FOR DETAILED DIRECTIONS 3 Active Active Problems No known active problems Resolved Problems Problem Noted Date Diagnosed Date Resolved Date Chest pain 05/26/2013 01/30/2017 Abdominal pain 09/10/2012 01/30/2017 Family History Medical History Relation Name Comments No Known Problems Brother 4 Heart disease Father Liver disease Maternal Grandfather No Known Problems Mother Heart disease Paternal Grandfather No Known Problems Sister 3 Relation Name Status Comments Brother 4 Alive Father Maternal Grandfather Mother Alive Paternal Grandfather Sister 3 Alive Social History Tobacco Use Types Packs/Day Years Used Date Smoking Tobacco: Never Smokeless Tobacco: Never Alcohol Use Standard Drinks/Week Comments Yes 0 (1 standard drink = 0.6 oz pur e alcohol) occ Comments No Sex and Gender Information Value Date Recorded Sex Assigned at Not on file Legal Sex Female 8:23 AM EST Gender Identity Not on file Sexual Orientation Not on file Last Filed Vital Signs Vital Sign Reading Time Taken Comments Blood Pressure 112/74 03/08/2023 2:09 PM EST Pulse 71 11/26/2019 5:30 PM EDT Temperature 36.6 C (97.9 F) 11/26/2019 5:45 PM EDT Respiratory Rate 20 11/26/2019 5:15 PM EDT Oxygen Saturation 98% 11/26/2019 5:45 PM EDT Inhaled Oxygen Concentration - - Weight 75.8 kg (167 lb) 03/08/2023 2:09 PM EST Height 175.3 cm (5' 9 ) 03/08/2023 2:09 PM EST Body Mass Index 24.66 03/08/2023 2:09 PM EST Plan of Treatment Health Maintenance Due Date Last Done Comments HIV screening 02/27/2009 Hepatitis C screening 02/27/2014 Tetanus adult (Td q 10,TDAP once) 2016 Covid-19 vaccine series ( season) 2023 09/21/2021, 03/22/2020, 03/01/2020 Influenza vaccine 10/26/2024 Cervical cancer screening 03/08/20262023, 07/25/2017 RSV Immunization (1 - 1-dose 75+ series) 02/27/2071 Chlamydia screening Discontinued 12/20/2015 Meningococcal B Vaccine Aged Out No l onger eligible based on patient's age to complete this topic Meningococcal Vaccine Aged Out No mckinley agatha eligible based on patient's age to complete this topic Pneumococcal Vaccine (2 - 49 years) Aged Out No longer eligible based on patient's age to complete this topic Procedures Procedure Name Priority Date/Time Associated Diagnosis Comments CHG CYTOPATH CERV/VAG THIN LAYER Routine 03/08/2023 9:16 PM EST CHLAMYDIA TRACHOMATIS, NAAT (LAB ORDER ONLY) ([facility] L LMW [facility]) Routine 12/20/2015 4:01 PM EDT Screen for STD (sexually transmitted disease) from Last 3 Months or Most Recently Relevant to Health Maintenance Results * Cytology certified nurses aide cases () (03/08/2023 9:16 PM EST) Cytology [facility] CYTOLOGY REPORT Procedures/Addend a Attached Patient: ANNA CANNON MR #: [id number] Submitted by: ADRYAN FRANK MD FINAL DIAGNOSIS CYTYC THIN PREP PAP SMEAR: Primary Diagnosis: NEGATIVE FOR INTRAEPITHELIAL LESION OR MALIGNANCY. Additional Findings: ENDOCERVICAL/TRANS FORMATION ZONE COMPONENT PRESENT. Specimen Adequacy: THIS SPECIMEN IS SATISFACTORY FOR EVALUATION. NOTE: Cervical/vaginal cytology is a screening tool for cervical carcinoma and its precursor lesions with an inherent false negative rate. It is an inaccurate test for detection of endometrial lesions and should not be used to evaluate suspected endometrial abnormalities. (The [place] System, 2001) 03/13/2023 10:55 * Report Electronically Signed Out * This electronic signature indicates that the pathologist has personally reviewed the available gross and/or microscopic material and has based the diagnosis on that evaluation. Specimen(s) Received: CYTYC THIN PREP PAP SMEAR Clinical History and Impression: {Not Available} Date of LMP: 02/19/23 Procedures/Addenda MOLECULAR DX: CHLAMYDIA AND GONORRHEA Pathologist: [facility] Status: Signed Out Ordered: 03/08/2023 Reported: 03/11/2023 13:21 Interpretation NO CHLAMYDIA TRACHOMATIS OR NEISSERIA GONORRHOEAE DNA DETECTED. Note: A negative result does not preclude Chlamydia trachomatis or Neisseria gonorrhea infection because results depend on adequate specimen collection and sufficient DNA detected. This test was performed at [facility] Department of Pathology, [address] [place] [address], CLIA# [id number] using the Prasda evan 6800 HPV Test System and is only approved by the Food and Drug Administration (FDA) for use on cervical specimens collected in Cytyc Preservcyt Solution (ThinPrep). When using ThinPrep liquid based samples for non-cervical specimens, SurePath liquid based samples, or formalin fixed paraffin embedded tissue, the performance characteristics have been determined by [facility]. Although testing on samples that are not cervical in origin, and/or in any other medium besides ThinPrep, has not been cleared or approved by the FDA, the FDA has determined that such clearance or approval is not necessary. [facility] Cervical Tracking Result Non-Tracking [facility] 03/08/2023 9:16 PM EST Comment:CYTYC THIN PREP PAP SMEAR+ [facility] us Adryan Frank MD PATHOLOGY/CYTOLOGY ORDERABLES Final Result [facility] Department of Pathology [address] [place] [address] [phone] [place] [address] * Chlamydia trachomatis, DNA, NAAT ([facility]) (12/20/2015 4:01 PM EDT) Chlamydia DNA Probe Negative Negative 12/21/2015 7:14 AM EDT [facility] Culture URINE SPECIMEN / Unknown Collection / Unknown 12/20/2015 4:01 PM EDT 12/20/2015 4:01 PM EDT us Karen Chen MD MICROBIOLOGY - GENERAL ORDERA BLES Final Result Performing Organization Address City/[facility]/ZIP Co de Phone Number [facility] [address] [place] [address] [phone] from Last 3 Months or Most Recently Relevant to Health Maintenance Insurance [employer]CIAL [employer]IC [place] [id number] [employer] Care Teams Director Of Litigation Relationship Specialty Start Date End Date Ryne Lara MD [address] [place] [phone] PCP - General Internal Medicine 04/04/15
--- OUTSIDE RECORDS SUMMARY | 2024-10-30 12:22 | XMS_ITS | Patient Health Record ---
Author Organization [facility] [place], Address [address] [place] [address] Care Team Providers Care Rotary Engraver Name Role Phone Eddie Skinner Unavailable [phone] Brendan Joya Unavailable [phone] Allergies Allergen (clinical drug ingredient) Drug/Non Drug [...] capsule as needed Orally Three times a day; Duration: 7 days 05/18/2016 Not-Taking Qvar 40 MCG/ACT 1 puff Inhalation Twice a day *please review for potential update for e-prescription and drug interaction check* 05/14/2016 Not-Taking Medrol (Mg) 4 mg as directed PO daily; Duration: 6 days *please review for potential update for e-prescription and drug interaction check* 05/03/2016 Not-Taking Xyzal 5 MG 1 tablet in the evening Orally Once a day; Duration: 14 days *please review for potential update for e-prescription and drug interaction check* 05/03/2016 Not-Taking control *please review f or potential update for e-prescription and drug interaction check* Not-Taking Zofran 4 MG 2 tablets Orally Twice a day; Duration: 5 days 12/18/2018 Active Problems Problem Type SNOMED Code ICD Code Onset Dates Problem Status W/U Status Risk Notes Problem Otalgia of right ear (finding) (8310715368) Otalgia, right ear (H92.01) Active confirmed Problem Acute upper respiratory infection (41121768) Acute upper respiratory infection, unspecified (J06.9) Active confirmed Problem Asthma (360203118) Other asthma (J45.998) Active confirmed Problem Cough (77719119) Cough (R05) Active confirmed Plan Of Treatment No Information Insurance Providers Payer Name Payer Address Payer Phone Subscriber Number Group Number Insured Name Patient Relationship to Insured Coverage Start Date Coverage End Date [facility] [address] [place] [address] [id number] ANNA FABIAN Self - patient is the insured Medical (General) History Medical History History ICD Code ASTHMA DEPRESSION
== END 2024-10-30 12:25 | disposition home or self-care (01) ==
LOC: HO.HSMS 11:20
PROVIDERS: PCP Nurse Practitioner Family; Visit Provider Nurse Practitioner Family
DX: F43.10 Post-traumatic stress disorder, unspecified (principal); F07.81 Postconcussional syndrome; G44.309 Post-traumatic headache, unspecified, not intractable; R42 Dizziness and giddiness
CPT/HCPCS: 99214

== ENCOUNTER → 2024-10-30 11:19 | Outpatient (BNVA) | payer OTHER, SELFPAY | PROVIDERS: PCP Nurse Practitioner Family; Visit Provider Nurse Practitioner Family | DX: F07.81 Postconcussional syndrome (principal); G44.309 Post-traumatic headache, unspecified, not intractable; F43.10 Post-traumatic stress disorder, unspecified; G43.009 Migraine without aura, not intractable, without status migrainosus; S06.9XAS Unspecified intracranial injury with loss of consciousness status unknown, sequela; R42 Dizziness and giddiness; F06.70 Mild neurocognitive disorder due to known physiological condition without behavioral disturbance; S01.80XS Unspecified open wound of other part of head, sequela; Z13.89 Encounter for screening for other disorder ==